=== PATIENT | female | born 1960 | race Caucasian/White ===

== ENCOUNTER 2018-05-11 22:21 | Emergency (ER) | payer OTHER ==
[2018-05-11 22:48] LABS: ABSOLUTE BASOPHIL COUNT 0.1 /CUMM (0.0-0.2); ABSOLUTE EOSINOPHIL COUNT 0 /CUMM (0.0-0.7); ABSOLUTE GRANULOCYTE CT 7.6 /CUMM (1.4-6.5); ABSOLUTE LYMPH COUNT 0.6 /CUMM (1.2-3.4); ABSOLUTE MONOCYTE COUNT 1.2 /CUMM (0.10-0.60); BASOPHIL % 1.2 % (0.0-2.0); EOSINOPHIL % 0.1 % (0-5); GRANULOCYTE % 80.4 % (42.2-75.2); HEMATOCRIT 36.6 % (37-47); MEAN CORPUSCULAR HGB 31.8 PG (27.0-31.0); MEAN CORPUSCULAR HGB CONC 33.1 G/DL (33.0-37.0); MEAN CORPUSCULAR VOLUME 95.9 FL (81.0-99.0); MEAN PLATELET VOLUME 9.1 FL (7.4-10.4); PLATELET COUNT 223 /CUMM (130-400); RBC DISTRIBUTION WIDTH 12.7 % (11.5-14.5); RED BLOOD CELL CT 3.81 /CUMM (4.20-5.40); WHITE BLOOD CELL COUNT 9.4 /CUMM (4.8-10.8)
--- NOTE | 2018-05-12 00:08 | ED GI/GU/ABDOMINAL COMPLAINT ---
History of Present Illness General Chief Complaint: General Adult Stated Complaint: AMS, ABD PAIN, +V Source: patient, family, old records Exam Limitations: no limitations Vital Signs & Intake/Output Vital Signs & Intake/Output Vital Signs Date Time Temp Pulse Resp B/P B/P Pulse O2 O2 Flow FiO2 Mean Ox Delivery Rate 05/12 0403 98.0 80 20 128/74 99 Room Air 05/11 2250 97.5 82 20 138/84 89 Room Air ED Intake and Output 05/12 0000 05/11 1200 Intake Total Output Total Balance Patient 98 lb Weight Allergies Coded Allergies: No Known Allergies (05/11/18) Reconcile Medications Azithromycin (Zithromax) 250 MG TABLET 1 DP PO AD PNEUMONIA 2 the first day followed by 1 for days 2-5 Ondansetron (Zofran Odt) 4 MG TAB.RAPDIS 1 TAB SL TID PRN NAUSEA Triage Note: PER PT ABD PAIN/ CP X 3 DAYS ON AND OFF VOMITING PER DAUGHTER PT APPEARS SL ALTERED PT SEEN AT PAIN MANGAEMENT PT ALERT REPETATIVE NO FACIAL DROOP NO OTHER NEURO SYMPTOMS Triage Nurses Notes Reviewed? yes ? N Is pt currently ? No HPI: Patient brought in by her daughter for evaluation for intermittent abdominal pain, intermittent confusion and chills. The abdominal pain started for 5 days ago and is intermittent. Pain is in the bilateral lower quadrants. The pain will last anywhere from a few minutes to a few hours. The pain is sharp and cramping in nature. The pain radiates as noted above. There are no aggravating or mitigating factors. At its worst the pain is 8 out of 10. Patient is in pain management. Daughter is also noticed that there've been times where she has been confused. There is no nausea or vomiting. No diarrhea or constipation. There is no dysuria or hematuria. She denies any headache. Past History Travel History Traveled to [place] past 21 day No Medical History Any Pertinent Medical History? see below for history Neurological: NONE EENT: NONE Cardiovascular: NONE Respiratory: NONE Gastrointestinal: NONE Hepatic: NONE Renal: NONE Musculoskeletal: chronic back pain, ATRHRITIS Psychiatric: NONE Endocrine: NONE Surgical History Surgical History: laminectomy Psychosocial History What is your primary language Croatian Tobacco Use: Current Daily Use Daily Tobacco Use Amount/Type: => 5 Cigarettes daily ETOH Use: denies use Illicit Drug Use: denies illicit drug use Family History Hx Contributory? No Review of Systems Review of Systems Constitutional: Reports: see HPI, chills. EENTM: Reports: no symptoms. Respiratory: Reports: no symptoms. Cardiovascular: Reports: no symptoms. GI: Reports: see HPI, abdominal pain. Genitourinary: Reports: no symptoms. Musculoskeletal: Reports: no symptoms. Skin: Reports: no symptoms. Neurological/Psychological: Reports: see HPI, confusion. Hematologic/Endocrine: Reports: no symptoms. Immunologic/Allergic: Reports: no symptoms. All Other Systems: Reviewed and Negative Physical Exam Physical Exam General Appearance: well developed/nourished, alert, awake, mild distress Head: atraumatic, normal appearance Eyes: Bilateral: PERRL, EOMI. Ears, Nose, Throat, Mouth: hearing grossly normal, moist mucous membrane Neck: normal inspection, supple, full range of motion Respiratory: normal breath sounds, chest non-tender, no respiratory distress, lungs clear Cardiovascular: regular rate/rhythm, normal peripheral pulses Gastrointestinal: normal bowel sounds, soft, non-tender, no organomegaly Back: normal inspection, normal range of motion Extremities: normal range of motion Neurologic/Psych: no motor/sensory deficits, awake, alert, oriented x 3, normal gait, normal mood/affect Skin: intact, normal color, warm/dry Core Measures ACS in differential dx? No Sepsis Present: No Sepsis Focused Exam Completed? No Progress Differential Diagnosis: appendicitis, bowel obstruction, gastritis, hepatitis, ischemic bowel, inflamm bowel dis, pancreatitis, peptic ulcer, PUD/GERD, SBO, UTI/pyelo Plan of Care: Orders Procedure Date/time Status URINE DRUG SCREEN FOR ER ONLY 05/127 Complete URINALYSIS 05/11 2229 Complete TROPONIN LEVEL 05/11 2229 Complete LIPASE 05/11 2229 Complete COMPREHENSIVE METABOLIC PANEL 05/11 2229 Complete CBC WITHOUT DIFFERENTIAL 05/11 2229 Complete AMYLASE 05/11 2229 Complete EKG 05/11 2222 Active Laboratory Tests 05/12/18 0010: Urine Opiates Screen 2568.00 H, Methadone Screen 85, Barbiturate Screen < 60, Ur Phencyclidine Scrn 16.40, Amphetamines Screen < 100, U Benzodiazepines Scrn < 85, Urine Cocaine Screen < 50, Urine Cannabis Screen < 5.00, Urinalysis MOD H, Urine Color YEL, Urine Clarity HAZY H, Urine pH 6.0, Ur Specific Zillah >= 1.030, Urine Protein 30 H, Urine Ketones 40 H, Urine Nitrite NEG, Urine Bilirubin NEG@ICTO, Urine Urobilinogen 1.0, Ur Leukocyte Esterase TRACE H, Ur Microscopic SEDIMENT EXAMINED, Urine RBC 1-3, Urine WBC 3-5 H, Ur Epithelial Cells MOD H, Urine Bacteria FEW H, Urine Mucus MANY H, Urine Hemoglobin NEG, Urine Glucose NEG 05/11/18 2241: Anion Gap 6, Estimated GFR > 60, BUN/Creatinine Ratio 46.7 H, Glucose 114 H, Calcium 8.9, Total Bilirubin 0.6, AST 47 H, ALT 54 H, Alkaline Phosphatase 90, Troponin I < 0.01, Total Protein 6.0 L, Albumin 3.6, Globulin 2.4, Albumin/ Globulin Ratio 1.5, Amylase 32, Lipase < 10 L, CBC w Diff NO MAN DIFF REQ, RBC 3.81 L, MCV 95.9, MCH 31.8 H, MCHC 33.1, RDW 12.7, MPV 9.1, Gran % 80.4 H, Lymphocytes % 5.9 L, Monocytes % 12.4 H, Eosinophils % 0.1, Basophils % 1.2, Absolute Granulocytes 7.6 H, Absolute Lymphocytes 0.6 L, Absolute Monocytes 1.2 H, Absolute Eosinophils 0, Absolute Basophils 0.1 Diagnostic Imaging: Viewed by Me: Radiology Read, CT Scan. Discussed w/RAD: Radiology Read, CT Scan. Radiology Impression: PATIENT: TOMA SHEARER PRESENT AGE: 57 PATIENT ACCOUNT NO: [id number] : 58 LOCATION: [facility] ORDERING PHYSICIAN: John Kay MD SERVICE DATE: 05/12/18 EXAM TYPE: CAT - CT ABD & PELVIS W/O IV CONTRAS EXAMINATION: CT ABDOMEN AND PELVIS WITHOUT CONTRAST CLINICAL INFORMATION: Small bowel obstruction COMPARISON: None TECHNIQUE: Multidetector volumetric imaging was performed from the superior aspect of the liver through the pubic symphysis. Sagittal and coronal reformatted images were obtained on the technologist's workstation. DLP: 233.59 mGy-cm FINDINGS: LUNG BASES: There are patchy regions of consolidation and tree in bud type nodularity bilaterally, favoring an inflammatory/infectious etiology. LIVER, GALLBLADDER, AND BILIARY TREE: The liver is normal in size, shape, and attenuation. There are 2 hypoattenuating lesions in the liver, larger in the right hepatic lobe measuring up to 2.4 cm; density is most consistent with cysts. No biliary ductal dilatation is present. The common bile duct appears mildly dilated. Cholelithiasis is noted, without definite gallbladder wall thickening though CT assessment of the gallbladder is relatively limited. PANCREAS: Grossly unremarkable, suboptimally visualized in the absence of intravenous contrast. SPLEEN: Unremarkable. ADRENAL GLANDS: Unremarkable. KIDNEYS AND URETERS: The kidneys are normal in size, shape, and attenuation. No hydronephrosis, hydroureter, or calculi seen. No perinephric stranding. BLADDER: Mildly distended with mild diffuse mural prominence which could be due to underdistention. GASTROINTESTINAL TRACT: No evidence of bowel obstruction. Assessment for wall thickening in the sigmoid colon is limited due to luminal collapse. The appendix is not discretely identified. There is mild nonspecific haziness within the mesenteric fat. No free fluid or free air is seen. ABDOMINAL WALL: No significant hernia is appreciated. LYMPH NODES: No lymphadenopathy is seen, though assessment is limited in the absence of intravenous contrast. VASCULAR: Scattered atherosclerotic calcifications are present. Duplicated IVC is noted. PELVIC VISCERA: Patient appears status post hysterectomy. OSSEOUS STRUCTURES: There is degenerative change in the lumbar spine at L4-L5 with disc space narrowing, vacuum disc phenomenon, and facet arthropathy. IMPRESSION: 1. No evidence of bowel obstruction. Nonspecific mesenteric stranding/edema. 2. Cholelithiasis. Common bile duct appears mildly dilated. Correlation with liver function tests may be helpful. If clinically warranted, MRCP would be helpful to assess for possible choledocholithiasis. 3. Patchy regions of pulmonary consolidation and tree in bud type nodularity in the lower lobes, favoring an inflammatory/infectious etiology. DICTATED BY: Cornelio Salas MD DATE/TIME DICTATED:05/12/1853 CUSTOMER CARE TEAM COACH:NYDIA DATE/TIME TRANSCRIBED:53 CONFIDENTIAL, DO NOT COPY WITHOUT APPROPRIATE AUTHORIZATION. < Electronically signed in Other Vendor System> SIGNED BY: Cornelio Salas MD 05/12/18 0109 CXR Impression: PATIENT: TOMA SHEARER PRESENT AGE: 57 PATIENT ACCOUNT NO: [id number] : 58 LOCATION: [facility] ORDERING PHYSICIAN: John Kay MD SERVICE DATE: 05/12/18 EXAM TYPE: RAD - XRY-CHEST XRAY, TWO VIEWS EXAMINATION: XR CHEST CLINICAL INFORMATION: Cough COMPARISON: None TECHNIQUE: 2 views of the chest were obtained. FINDINGS: Lung volumes are symmetric. There is diffuse interstitial prominence bilaterally. There are regions of mild patchy opacity in the mid to lower lungs bilaterally. No evidence of pneumothorax or pleural effusion. Cardiac size appears near the upper limits of normal. No acute osseous findings are seen. IMPRESSION: Regions of mild patchy mid to lower lung opacity bilaterally, suspicious for consolidation. Diffuse interstitial prominence may reflect associated airways disease. DICTATED BY: Cornelio Salas MD DATE/TIME DICTATED:05/12/18239 CUSTOMER CARE TEAM COACH:NYDIA DATE/TIME TRANSCRIBED:05/12/18239 CONFIDENTIAL, DO NOT COPY WITHOUT APPROPRIATE AUTHORIZATION. <Electronically signed in Other Vendor System> SIGNED BY: Cornelio Salas MD 05/12/18245 Initial ED EKG: NSR, nonspecific ST T wave chg Prior EKG: unchanged Departure Departure Disposition: HOME OR SELF CARE Condition: Stable Clinical Impression Primary Impression: Pneumonia Referrals: Josemanuel CARVAJAL,Matheus Mccann (PCP/Family) Additional Instructions: TAKE ANTIBIOTICS PRESCRIBED TAKE ZOFRAN NEEDED FOR NAUSEA RETURN IF SYMPTOMS WORSEN OR FOR ANY CONCERNS Departure Forms: Customer Survey General Discharge Information Prescriptions: Current Visit Scripts Azithromycin (Zithromax) 1 DP PO AD #6 TAB 2 the first day followed by 1 for days 2-5 Ondansetron (Zofran Odt) 1 TAB SL TID PRN NAUSEA #10 TAB Additional Instructions: TAKE ANTIBIOTICS PRESCRIBED TAKE ZOFRAN NEEDED FOR NAUSEA RETURN IF SYMPTOMS WORSEN OR FOR ANY CONCERNS Departure Forms: Customer Survey General Discharge Information Prescriptions: Current Visit Scripts Azithromycin (Zithromax) 1 DP PO AD #6 TAB 2 the first day followed by 1 for days 2-5 Ondansetron (Zofran Odt) 1 TAB SL TID PRN NAUSEA #10 TAB
--- NOTE | 2018-05-12 01:09 | CT SCAN REPORT ---
EXAMINATION: CT ABDOMEN AND PELVIS WITHOUT CONTRAST CLINICAL INFORMATION: Small bowel obstruction COMPARISON: None TECHNIQUE: Multidetector volumetric imaging was performed from the superior aspect of the liver through the pubic symphysis. Sagittal and coronal reformatted images were obtained on the technologist's workstation. DLP: 233.59 mGy-cm FINDINGS: LUNG BASES: There are patchy regions of consolidation and tree in bud type nodularity bilaterally, favoring an inflammatory/infectious etiology. LIVER, GALLBLADDER, AND BILIARY TREE: The liver is normal in size, shape, and attenuation. There are 2 hypoattenuating lesions in the liver, larger in the right hepatic lobe measuring up to 2.4 cm; density is most consistent with cysts. No biliary ductal dilatation is present. The common bile duct appears mildly dilated. Cholelithiasis is noted, without definite gallbladder wall thickening though CT assessment of the gallbladder is relatively limited. PANCREAS: Grossly unremarkable, suboptimally visualized in the absence of intravenous contrast. SPLEEN: Unremarkable. ADRENAL GLANDS: Unremarkable. KIDNEYS AND URETERS: The kidneys are normal in size, shape, and attenuation. No hydronephrosis, hydroureter, or calculi seen. No perinephric stranding. BLADDER: Mildly distended with mild diffuse mural prominence which could be due to underdistention. GASTROINTESTINAL TRACT: No evidence of bowel obstruction. Assessment for wall thickening in the sigmoid colon is limited due to luminal collapse. The appendix is not discretely identified. There is mild nonspecific haziness within the mesenteric fat. No free fluid or free air is seen. ABDOMINAL WALL: No significant hernia is appreciated. LYMPH NODES: No lymphadenopathy is seen, though assessment is limited in the absence of intravenous contrast. VASCULAR: Scattered atherosclerotic calcifications are present. Duplicated IVC is noted. PELVIC VISCERA: Patient appears status post hysterectomy. OSSEOUS STRUCTURES: There is degenerative change in the lumbar spine at L4-L5 with disc space narrowing, vacuum disc phenomenon, and facet arthropathy. IMPRESSION: 1. No evidence of bowel obstruction. Nonspecific mesenteric stranding/edema. 2. Cholelithiasis. Common bile duct appears mildly dilated. Correlation with liver function tests may be helpful. If clinically warranted, MRCP would be helpful to assess for possible choledocholithiasis. 3. Patchy regions of pulmonary consolidation and tree in bud type nodularity in the lower lobes, favoring an inflammatory/infectious etiology.
--- NOTE | 2018-05-12 02:46 | RADIOLOGY REPORT ---
EXAMINATION: XR CHEST CLINICAL INFORMATION: Cough COMPARISON: None TECHNIQUE: 2 views of the chest were obtained. FINDINGS: Lung volumes are symmetric. There is diffuse interstitial prominence bilaterally. There are regions of mild patchy opacity in the mid to lower lungs bilaterally. No evidence of pneumothorax or pleural effusion. Cardiac size appears near the upper limits of normal. No acute osseous findings are seen. IMPRESSION: Regions of mild patchy mid to lower lung opacity bilaterally, suspicious for consolidation. Diffuse interstitial prominence may reflect associated airways disease.
[2018-05-12] MEDS ORDERED: ZOFRAN ODT4 M1 SL (02:58)
[2018-05-12] MEDS ORDERED: ZITHROMAX250 M2 PO (02:58)
[2018-05-12 04:03] VITALS: BP 128/74
== END 2018-05-12 04:07 ==
LOC: ERH 22:21
PROVIDERS: Emergency Medicine
DX: J18.9 Pneumonia, unspecified organism (principal); F17.210 Nicotine dependence, cigarettes, uncomplicated; R10.31 Right lower quadrant pain; R10.32 Left lower quadrant pain; R41.0 Disorientation, unspecified; R68.83 Chills (without fever)
CPT/HCPCS: 71046; 74176; 80307; 81001; 93005; 93010; 96374; 96375; J0696; J2405